=== PATIENT | male | born 1960 | race Caucasian/White ===

== ENCOUNTER 2024-09-17 07:32 | Outpatient (CLI) | payer MEDICAID, SELFPAY ==
[2024-09-13 10:27] VITALS: BMI 23.4
[2024-09-16 11:40] LABS: Basophils # (Auto) 0.1 Thou/mm3 (0.0-0.2); Basophils % (Auto) 1 % (0-2.5); Eosinophils # (Auto) 0.2 Thou/mm3 (0.0-0.5); Eosinophils % (Auto) 2 % (0-10); Hematocrit 42.2 % (41.0-53.0); Hemoglobin 14.4 g/dL (13.5-16.0); Immature Granulocytes % (Auto) 0 % (0-0); Immature Granulocytes Auto 0.05 Thou/mm3 (0.00-0.00); Lymphocytes # (Auto) 2.3 Thou/mm3 (1.0-4.8); Lymphocytes % (Auto) 19 % (10-50); Mean Corpuscular HGB Conc 34.1 g/dl (31.0-37.0); Mean Corpuscular Hemoglobin 32.4 pg (25.0-35.0); Mean Corpuscular Volume 95 fL (80-100); Monocytes # (Auto) 1.9 Thou/mm3 (0.0-0.8); Monocytes % (Auto) 16 % (0-12); Neutrophils # (Auto) 7.6 Thou/mm3 (1.8-7.7); Neutrophils % (Auto) 63 % (37-80); Nucleated Red Blood Cell % 0 /100 WBC (0); Platelet Count 284 Thou/mm3 (140-440); RDW Standard Deviation 46.2 fL (35.1-43.9); Red Blood Count 4.45 Miln/mm3 (4.50-5.90); White Blood Count 12.1 Thou/mm3 (3.8-10.6)
[2024-09-16 11:42] LABS: INR 1.1 (0.9-1.3); Partial Thromboplastin Time 28.5 Seconds (22.0-36.0); Prothrombin Time 11.6 Seconds (9.0-12.2)
[2024-09-16 11:44] LABS: Blood Urea Nitrogen 17 mg/dL (9-23); Creatinine (Component) 0.8 mg/dL (0.6-1.3); Estimated Creatinine Clearance 105.1 mL/min (>60); eGFR > 60 See Note
[2024-09-17] VITALS (10 sets, daily range): BP systolic 106–134; BP diastolic 54–81; PULSE 69–99; RESP 14–17; TEMP 36.1–36.6; O2SAT 90–92
--- NOTE | 2024-09-17 08:00 | XR_ITS ---
Examination: CT soft tissue neck, with intravenous contrast. 2-D coronal reconstructions. 2-D sagittal reconstructions. Date and time of exam :September 17, 2024 0816 hrs. Indications: Palpable lump in the neck this month. CTDI: vol (mGy):11.1 DLP: (mGycm):50 Technique: 1.25 mm axial sections of the neck of the obtained. Coronal and sagittal reconstructions have been obtained. Intravenous contrast administered 50 cc Isovue-370. Low dose protocols were performed. One or more of the following dose reduction techniques were used; automated exposure control, adjustment of the mA and/or KV according to patient size, use of iterative reconstruction technique. Findings: Large necrotic soft tissue mass posterior to the angle of mandible on the right side, at least 5.5 x 4.8 cm Subtle low-density in the right oropharynx at least 30 mm The larynx appears normal Thyroid lobes are not enlarged Epiglottis appears thickened No prevertebral soft tissue prominence Impression: Large necrotic soft tissue mass posterior to the right ankle amenable Subtle 30 mm low-density in the right oropharynx
--- NOTE | 2024-09-17 08:30 | XR_ITS ---
Exam: CT-guided right neck mass biopsy DATE: 09/17/2024, 8:48 AM INDICATION: Right neck mass CTDI: 20 DLP: 414 PROCEDURE: After a discussion of risks and benefits informed consent was obtained. Patient was brought to the CT scanner and placed supine on the exam table. Preliminary contrast enhanced CT demonstrated a prominent right sided superficial neck mass. This was targeted for biopsy. The overlying skin was cleaned and draped in normal sterile surgical fashion. 10 cc of 1% lidocaine was used for local anesthesia. Conscious sedation was begun with direct continuous nursing supervision. Using CT guidance an 18-gauge needle biopsy system was sequentially advanced into the targeted mass. Multiple 18-gauge core biopsy samples were obtained, placed in formalin and sent to lab for analysis. The needle was withdrawn. Hemostasis was achieved. The access site was covered with a sterile dressing. Postbiopsy CT can was performed which demonstrated no evidence of hematoma or other acute complication. Patient tolerated procedure well and was transferred to the holding area for post procedural observation. IMPRESSION: Successful CT-guided right neck mass biopsy as above
[2024-09-17] MEDS: SODIUM CHLORIDE 0.9% 500 ML 250 ML 20 ML IV (08:49)
[2024-09-17] MEDS: MIDAZOLAM INJ 1 MG/ML VIAL 2 ML IV (09:07)
[2024-09-17] MEDS: fentaNYL CIT INJ 50 mCg/ML AMP 2ML 75 MCG IVP (09:07)
== END 2024-09-17 10:20 | disposition home or self-care (01) ==
PROVIDERS: Radiology Diagnostic Radiology; PCP Physician Assistant; Referring Provider Physician Assistant; Visit Provider Physician Assistant
DX: C44.42 Squamous cell carcinoma of skin of scalp and neck (principal); Z01.812 Encounter for preprocedural laboratory examination
CPT/HCPCS: 20206; 36415; 70491; 77012; 82565; 84520; 85025; 85610; 85730; 99152; A4649; J2250; J3010; J7040; Q9967

== ENCOUNTER 2024-10-21 13:22 | Outpatient (RCR) | payer MEDICAID, SELFPAY ==
--- NOTE | 2024-10-21 13:42 | CTCTXPLN_ITS ---
[facility] [address] [place], [place] [address] Physician Clinical Treatment Planning Note Date of Service: 10/21/2024 Name: RANDY DAVIDSONDARYL MonroyB.: 1960 The patient has agreed to proceed with Radiation therapy. Tests and supporting medical records were interpreted to assist in defining the tumor location and extent of disease. Further imaging will be necessary to contour and delineate the volume to which the XRT will be provided. A. Treatment Intent: Curative B. Modality: 6 MV C. Requested Technique: VMAT D. Treatment Site: Head and neck E. Critical structures to be contoured on plan: F. In order to accomplish this plan, I am ordering/Prescribing the followin. Simulations (s) will be performed to accomplish a reproducible treatment position, to determine optimal treatment portals/beam arrangements, to design beam modifying devices and verify treatment portals on patient prior to the commencement of Radiation Therapy. Head and neck 2. Devices; for immobilization and beam shaping: Aquaplast 3. CT Guidance for placement of XRT chahal Scan area: 4. Portal images Frequency: 5. Invivo transit dose measurement once per week on all VMAT patients. 6. Special Physics Consult Requested for: 7. Other requests: Source of procedure chemo and radiation G. Dose Objectives: Curative Electronically signed by: Harsh Delgado M.D. 10/21/2024 1:40 PM
--- NOTE | 2024-10-21 13:44 | CTCTXPLNST_ITS ---
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 Pt Treatment Intent: curative palliative other: Stage: Procedure CPT # Ordered Spec. Procedure 00972 1 [place] Complex (set-up) 73019 2 [place] Simple 40989 IMRT Plan 05394 2 MLC Devices VMAT 64966 6 [place] 3 D 25628 TRTMT dev Complex 69741 Aqua Plast 1 TRTMT dev simple 41350 Basic Perfecto 93211 18 Special Dosimetry 01807 Spec Physics 80461 Port Films 41566 SRS Cranial/1FX 19876 SBR 5 FX or Less /ex: 5 = 5 fx 63235 IMRT Simple 61582 7000 35 IMRT Complex 85165 IGRT 59568 33 Rad del com 6-10 16119 Rad del com 11 59628 Cont Med Physics 02188 7 Treatment Planning 22971 1 Rad del com 20 mev 10186 Rad del inter 12-17 62310 Rad del inter 05-28 62979 Rad del simple 6-10 07738 Rad del simple 05-28 44972 Special Port Plan 59397 TRTMT dev inter 38709 Isodose Complex 18393 Isodose simple 96999 Resp Motion Mgmt Simulation 30827 Placement of Fiducial Markers 84645 Electronically Signed By: Harsh Delgado MD, DABR 10/21/2024 1:42 PM
== END 2024-11-06 23:59 | disposition home or self-care (01) ==
LOC: SCTC 13:22
PROVIDERS: PCP Physician Assistant; Referring Provider Internal Medicine Hematology & Oncology; Visit Provider Radiology Therapeutic Radiology
DX: C09.1 Malignant neoplasm of tonsillar pillar (anterior) (posterior) (principal)
CPT/HCPCS: 99213; G0463

== ENCOUNTER 2024-12-06 09:23 | Outpatient (RCR) | payer MEDICAID, SELFPAY ==
[2024-11-20 15:08] VITALS: BMI 20.9
== END 2024-12-07 23:59 | disposition home or self-care (01) ==
LOC: SCTC 09:23
PROVIDERS: PCP Physician Assistant; Referring Provider Physician Assistant; Visit Provider Radiology Therapeutic Radiology
DX: Z51.0 Encounter for antineoplastic radiation therapy (principal); C09.1 Malignant neoplasm of tonsillar pillar (anterior) (posterior); C79.89 Secondary malignant neoplasm of other specified sites
CPT/HCPCS: 77014; 77290; 77300; 77301; 77334; 77338; 77385

== ENCOUNTER 2025-01-06 09:43 | Outpatient (RCR) | payer MEDICAID, SELFPAY ==
--- NOTE | 2024-12-09 10:17 | CTCTRTNOTE_ITS ---
[facility] [address] [place], [place] [address] Weekly Management Date: 12/09/2024 ?? Name: RANDY BUCHANAN : 1960 A. Patient is currently at 1600 cGy. B. Patient is having the following side effects: Some dryness and taste changes.. C. Salt and soda and Magic mouthwash prescriptions given. Resume radiation therapy. Electronically signed by: Harsh Delgado M.D. 12/09/2024 10:15 AM
== END 2025-01-06 23:59 | disposition home or self-care (01) ==
LOC: SCTC 09:43
PROVIDERS: PCP Physician Assistant; Referring Provider Physician Assistant; Visit Provider Radiology Therapeutic Radiology
DX: Z51.0 Encounter for antineoplastic radiation therapy (principal); C09.1 Malignant neoplasm of tonsillar pillar (anterior) (posterior); K12.33 Oral mucositis (ulcerative) due to radiation; R13.10 Dysphagia, unspecified; Y84.2 Radiological procedure and radiotherapy as the cause of abnormal reaction of the patient, or of later complication, without mention of misadventure at the time of the procedure
CPT/HCPCS: 77014; 77290; 77334; 77336; 77385; 99424; 99425

== ENCOUNTER 2025-02-06 09:26 | Outpatient (RCR) | payer MEDICAID, SELFPAY | END 2025-02-06 23:59 | disposition home or self-care (01) | LOC: SCTC 09:26 | PROVIDERS: PCP Physician Assistant; Referring Provider Physician Assistant; Visit Provider Radiology Therapeutic Radiology | DX: Z51.0 Encounter for antineoplastic radiation therapy (principal); C09.1 Malignant neoplasm of tonsillar pillar (anterior) (posterior); K12.33 Oral mucositis (ulcerative) due to radiation; Y84.2 Radiological procedure and radiotherapy as the cause of abnormal reaction of the patient, or of later complication, without mention of misadventure at the time of the procedure | CPT/HCPCS: 77300; 77301; 77336; 77338; 77385; 99211; G0463 ==

== ENCOUNTER 2025-02-20 09:33 | Outpatient (RCR) | payer MEDICAID, SELFPAY | END 2025-03-09 23:59 | disposition home or self-care (01) | LOC: SCTC 09:33 | PROVIDERS: PCP Physician Assistant; Referring Provider Physician Assistant; Visit Provider Radiology Therapeutic Radiology | DX: Z51.0 Encounter for antineoplastic radiation therapy (principal); C09.1 Malignant neoplasm of tonsillar pillar (anterior) (posterior) | CPT/HCPCS: 77385; 99212; G0463 ==